=== PATIENT | female | born 1985 | race Two or more races ===

== ENCOUNTER 2023-12-08 14:56 | Observation (INO) | payer OTHER, SELFPAY ==
[2023-12-08 15:12] VITALS: BP 94/68; BMI 25.5
[2023-12-08 16:04] LABS: Mean Corp Hgb Conc. 33.3 g/dL (33.0-37.0); Mean Corpuscular Hgb 30.6 pg (27.0-31.0); Mean Corpuscular Volume 91.8 fL (81.0-99.0); Mean Platelet Volume 11.1 fL (7.4-10.4); Platelet Count 131 10^3/uL (130-400); Red Blood Cell Count 2.94 10^6/uL (4.20-5.40); Red Cell Dist. Width 12.7 % (11.5-14.5); White Blood Cell Count 12.5 10^3/uL (4.8-10.8)
[2023-12-08 16:24] LABS: PT 13.2 Sec (11.4-14.6)
[2023-12-08 16:58] LABS: APTT 23.8 Sec (23.4-35.0); Fibrinogen 348 MG/DL (199-459)
== END 2023-12-08 17:36 | disposition home or self-care (01) ==
LOC: LDRP 14:56
PROVIDERS: ADMITTING PHYSICIAN Obstetrics & Gynecology
DX: M54.59 Other low back pain (principal); O99.012 Anemia complicating pregnancy, second trimester; D64.9 Anemia, unspecified; Z3A.25 25 weeks gestation of pregnancy; W01.0XXA Fall on same level from slipping, tripping and stumbling without subsequent striking against object, initial encounter; Y93.01 Activity, walking, marching and hiking; Y92.008 Other place in unspecified non-institutional (private) residence as the place of occurrence of the external cause; O09.522 Supervision of elderly multigravida, second trimester; O44.42 Low lying placenta NOS or without hemorrhage, second trimester
CPT/HCPCS: 85027; 85384; 85460; 85610; 85730; 86850; 86900; 86901; G0378

== ENCOUNTER 2025-08-07 15:23 | Emergency (ER) | payer OTHER, SELFPAY ==
[2025-08-07 15:31] VITALS: BP 123/65
[2025-08-07] MEDS: TYLENOL 650 MG PO (15:57)
[2025-08-07 15:58] LABS: Hematocrit 37.5 % (37.0-47.0); Hemoglobin 13.0 g/dL (12.0-16.0); Mean Corp Hgb Conc. 34.7 g/dL (33.0-37.0); Mean Corpuscular Volume 86.8 fL (81.0-99.0); Nucleated Red Blood Cells % 0 %; Platelet Count 196 10^3/uL (130-400); Red Cell Dist. Width 12.5 % (11.5-14.5)
[2025-08-07 16:14] LABS: HCG, Serum Qualitative Screen Negative
[2025-08-07 16:19] LABS: ALT (SGPT) 21 U/L (0-35); AST (SGOT) 22 U/L (14-36); Albumin 4.6 g/dl (3.5-5.0); Alkaline Phosphatase 55 U/L (38-126); Blood Urea Nitrogen 12 mg/dl (7-17); Calcium 9.7 mg/dl (8.4-10.2); Carbon Dioxide 25 mmol/L (22-30); Chloride 103 mmol/L (98-107); Glucose 95 mg/dl (70-99); Potassium 4.0 mmol/L (3.5-5.1); Sodium 135 mmol/L (135-145); Total Protein 8.1 g/dl (6.3-8.2); eGFR > 60.00
[2025-08-07 16:20] LABS: COVID-19 Antigen Negative (Negative)
--- NOTE | 2025-08-07 17:43 | ED.GENMED ---
History of Present Illness
General
Chief Complaint: Fever
Source: patient
Exam Limitations: none
Time Seen by Provider: 08/07/25 17:28
History of Present Illness
History of Present Illness:
40-year-old female presents with fatigue fever cough achiness. This worsened today but has been sick for 10 days. She care twice and thought to have a viral URI but eventually was prescribed amoxicillin. She has been on this for 2 days without
any relief. She also was prescribed cough medicine. No known sick she is healthy otherwise.
Phy Exam
Physical Exam
Physical Exam:
General: Well-appearing female no acute respiratory distress
HEENT normal cephalic mucosa dry neck is supple
Heart: Regular rate and rhythm
Lungs: Clear no obvious wheeze or rails
Abdomen is soft nontender
Sepsis
Sepsis Screening
Sepsis Assessment: Sepsis Ruled Out
Sepsis Screen
Sepsis Screen: Sepsis Ruled Out
Date: 08/07/25
Time: 21:33
Course
Orders/Labs/Results
Orders:
Orders
08/07/25 15:45
CMP [Comprehensive Metabolic Panel] Urgent
COVID-19 Antigen Urgent
Source: Nasal Swab
Complete Blood Count/With Diff Urgent
HCG, Serum Qualitative Screen Urgent
Comment: ADD ON
Influenza A+B Rapid Molecular Urgent
[facility]EN Source: Nasal Swab
Specimen Description:
Date Specimen was Collected: 08/07/25
Time Specimen was Collected: 15:39
Rapid Strep Group A Urgent
[facility] Source: Throat/Pharynx
Specimen Description:
Date Specimen was Collected: 08/07/25
Time Specimen was Collected: 15:39
08/07/25 15:53
Add On- LAB Urgent
Tests Added?: HCG qual.
CXR2 [CR Chest - 2 Views ] Urgent
Comment:
Reason For Exam: cough and fever
08/07/25 15:54
Acetaminophen [Tylenol] 650 mg PO NOW STA
08/07/25 15:56
Acetaminophen [Tylenol] 650 mg .ROUTE .STK-MED ONE
08/07/25 17:43
0.9% Sodium Chloride 1000 ml [Nss] 1,000 ml IV BOLUS
Ketorolac [Toradol] 15 mg IV NOW STA
08/07/25 19:18
0.9% Sodium Chloride 1000 ml [Nss] 1,000 ml IV BOLUS
Abnormal Lab Results
08/07/25
15:45
Absolute Lymphs (auto) 0.4 L 10^3/uL
(1.2-3.4)
Neutrophils % 84.4 H %
(42.2-75.2)
Lymphocytes % 5.9 L %
(20.5-51.1)
08/07/25 15:45
08/07/25 15:45
Vital Signs
Initial and Last Documented VS:
Initial Vital Signs
Temp Pulse Resp BP Pulse Ox
101.5 F H 131 22 123/65 99
08/07/25 15:31 08/07/25 15:31 08/07/25 15:31 08/07/25 15:31 08/07/25 15:31
Last Documented Vital Signs
Temp Pulse Resp BP Pulse Ox
98.6 F 110 16 109/77 100
08/07/25 18:44 08/07/25 19:02 08/07/25 19:02 08/07/25 19:02 08/07/25 19:02
MDM/Problems Addressed
Differential Diagnosis Includes:
Patient with fever fatigue myalgias cough. Consider viral illness versus COVID versus flu or pneumonia. She is febrile at triage. Tylenol was given. Will hydrate. She did test positive for influenza A. Toradol ordered as well
*Pulse Oximetry
SaO2: 99
Oxygen Mode of Delivery: Room air
Patient hypoxic: no
*Critical Care Note
Total Time (30-74mins, 75-104mins- exclusive of procedures): Not Applicable
Update Note
Update Note:
Patient given 2 L of fluid here feeling better vital signs have improved. Recommended supportive care with fever control and hydration at home. Stable for discharge
ED Attending Note
-
Portions of this chart may have been created with voice recognition software.� Occasional wrong word or��sound alike� substitutions may have occurred due to the inherent limitations of voice recognition software.
Discharge Plan
Departure
Patient Disposition: Home (Routine Discharge)
Date of Disposition: 08/07/25
Time of Disposition: 21:32
Patient with high blood pressure during this ER visit?: No
Discharge Problem:
Influenza A
Instructions: Fever, Adult (DC)
Prescriptions:
No Action
prenat.vits,nirav,[id number] Tablet
1 tab PO DAILY
Referrals:
Rahul George MD [Family Provider, Internal Medicine]
Activity Restrictions/Additional Instructions:
Rest. Drink plenty fluids. Continue with fever control. Return here if needed otherwise follow-up with your doctor
Interventions
Interventions:
*Risk Screen - Suicide Last Done: 08/07/25 15:24
*General Assessment Last Done: 08/07/25 18:41
*Neglect/Abuse Screening Last Done: 08/07/25 18:41
*ED COVID-19 Vaccine History Last Done: 08/07/25 18:41
*ED Influenza Vaccine History Last Done: 08/07/25 18:41
[facility] Risk Assessment Tool Last Done: 08/07/25 18:41
ED- Neurological Assessment Last Done: 08/07/25 18:41
ED-Skin Assessment Last Done: 08/07/25 18:41
Discharge Date and Time
Print Language: [id number]
[2025-08-07] MEDS: NSS 1000 IV ×2 (17:50→19:22)
[2025-08-07] MEDS: TORADOL 15 MG IV (17:51)
[2025-08-07 18:41] VITALS: BMI 24.8
[2025-08-07 19:02] VITALS: BP 109/77
[2025-08-07 21:49] VITALS: BP 99/63
== END 2025-08-07 21:51 | disposition home or self-care (01) ==
LOC: EMR 15:23
PROVIDERS: Emergency Medicine; EMERGENCY PHYSICIAN Emergency Medicine; FAMILY PHYSICIAN Internal Medicine
DX: J10.1 Influenza due to other identified influenza virus with other respiratory manifestations (principal)
CPT/HCPCS: 99283; 71046; 80053; 84703; 85025; 87070; 87502; 87811; 87880